=== PATIENT | female | born 1970 | race Caucasian/White ===

== ENCOUNTER 2018-01-06 15:07 | Emergency (ER) | payer MEDICAID, SELFPAY ==
[2018-01-06 15:07] VITALS: BP 122/76; PULSE 105; RESP 18; TEMP 36.8; O2SAT 97; BMI 25.0
--- NOTE | 2018-01-06 15:21 | ED.VISSUMM ---
- ER Visit Summary Date of Service: 01/06/18 Chief Complaint: Fever, cough, myalgias History of Present Illness: The patient is a 47 F who is otherwise healthy presents with 4 days of infectious type symptoms. Patient states her granddaughter was sick with similar symptoms. She states on morning, she began to have a scant cough. She also had diffuse muscle pains and arthralgias. She is also complaining of a sore throat. She states she has had a sore throat intermittently for the past 2 months. She does smoke. She denies any weight loss. She does admit some lack of appetite. She states that she has not had anything come up with the coughing. She has not found anything that improves her symptoms. She denies any history of prior pneumonia. She takes no daily medications. Physical Examination: Vital signs reviewed General: Well-nourished, well-developed Head: Normocephalic, atraumatic Eyes: Pupils equal and reactive, extraocular muscles intact Neck, supple, no lymphadenopathy Heart: Regular rate and rhythm Respiratory: No distress, scant wheeze throughout Abdomen: Soft, nontender, nondistended, no peritoneal signs Back: Nontender Extremities: Nontender, no edema, no cords Skin: Normal color no rash Neuro: Alert and oriented, no focal or lateralizing deficits Test Results: [] Emergency Department Course and Treatment: He was established. Patient was given a breathing treatment and Toradol. She did have marked improvement of symptoms. Her labs are relatively unremarkable. Her influenza test was negative. Patient's chest x-ray does show evidence of an early right lower lobe infiltrates. She is not hypoxic. She has had resolution of her tachypnea. I do feel that she is safe for outpatient therapy. She is given her first dose of azithromycin here. I will keep her on this and prednisone. She was counseled on concerning symptoms. She will be discharged home. Treatment Plan: [] Disposition: Discharge Impression: Community acquired pneumonia This note was generated with [employer] dictation software. It may contain incorrect words, spelling, and punctuation that were not noted in review of the chart prior to signing ED Disposition - Plan for ED Patient: Chief Complaint: General Illness Instructions: ED Pneumonia Adult Prescriptions: Azithromycin [Zithromax] 250 mg PO DAILY #4 tab Prednisone 10 mg PO UD #33 tab Referrals: Care Physician,No Primary [Primary Care Provider] -
[2018-01-06] MEDS: Ketorolac 30 MG/ML Syringe IV (15:32)
[2018-01-06] MEDS: 0.9% Normal Saline 1,000 ML 1000 ML IV (15:32)
[2018-01-06] MEDS: Ipratropium/Albuterol Sulfate 3 ML AMPUL.NEB INHALATION (15:32)
[2018-01-06 15:38] VITALS: PULSE 87; RESP 18
[2018-01-06 15:41] LABS: Absolute Lymphocyte Count 0.67 X10^3/ul (0.83-4.51); Absolute Neutrophil Count 10.1 X10^3/uL (2.0-7.7); Basophil# 0.05 X10^3/uL; Basophil% 0.4 % (0-1); Eosinophil# 0.14 X10^3/uL; Eosinophils% 1.2 % (0-5); Hematocrit 41.1 % (37-47); Hemoglobin 13.6 g/dl (12.0-15.0); Lymphocyte # 0.67 X10^3/ul (4.0); Lymphocyte % 5.6 % (19-41); Mean Corp Hgb Conc 33.1 g/gl (32-36); Mean Corpuscular Hgb 29.8 pg (27.0-32.0); Mean Corpuscular Volume 89.9 fL (81-99); Mean Platelet Vol. 10.4 fl (6.2-12.0); Monocyte# 0.96 X10^3/uL; Neutrophil # 10.14 X10^3/uL (2.7-7.7); Neutrophil % 84.5 % (47-70); POSITIVE COUNT NO; POSITIVE DIFFERENTIAL NO; POSITIVE MORPHOLOGY NO; Platelet Count 319 K/mm3 (150-450); RBC Distribution Width SD 49.3 fl (35.1-43.9); Red Blood Count 4.57 M/mm3 (4.2-5.4)
[2018-01-06 15:45] LABS: Anion Gap 8 (5-15); BUN 15 mg/dL (7-18); BUN/Creat Ratio 18.2 RATIO (10-20); Calcium,Total 9.1 mg/dL (8.5-10.1); Chloride 101 mmol/L (98-107); Creatinine, Serum 0.83 mg/dL (0.55-1.02); EST Glomerular Filtration Rate 78 mL/min (>60); Est Glom Filt Rate - Afr Amer 94 mL/min (>60); Estimated Creatinine Clearance 79.73 ml/min; Glucose 138 mg/dL (74-106); Potassium 3.9 mmol/L (3.5-5.1); Sodium Level 136 mmol/L (136-145)
--- NOTE | 2018-01-06 15:45 | RAD_ITS ---
STUDY: X-RAY CHEST REASON FOR EXAM: Female, 47 years old. COUGH, SHORT OF BREATH, FEVER TECHNIQUE: COMPARISON: None. FINDINGS: On the lateral view posterior to the heart it appears that there is some increased pulmonary parenchymal density. I believe this is to the right of the heart on the PA view but is more difficult to identify on that view. It is suspect for small infiltrate otherwise the remainder lungs are clear. There is no demonstrated pleural abnormality. Normal size heart. Normal mediastinum and katy. Normal visualized pulmonary arteries. Normal visualized aortic arch and descending thoracic aorta. Normal visualized thoracic spine. Normal visualized ribs, clavicles, and shoulders. There is no demonstrated abnormality of the visualized soft tissue structures of the upper abdomen. RAD/Chest PA and Lateral IMPRESSION: Subtle posterior medial right lower lobe infiltrate. Electronically Signed: Zina Morin MD at 17:03 EST Tel , Service support ,
[2018-01-06] MEDS: Azithromycin 250 MG Tablet 500 MG PO (17:29)
[2018-01-06 17:33] VITALS: BP 112/61; PULSE 87; RESP 18; TEMP 36.6; O2SAT 96
== END 2018-01-06 17:36 | disposition home or self-care (01) ==
PROVIDERS: Emergency Provider Emergency Medicine
DX: J18.9 Pneumonia, unspecified organism (principal); F17.200 Nicotine dependence, unspecified, uncomplicated
CPT/HCPCS: 71046; 80048; 85025; 87804; 94640; 96361; 96374; 96375; 99284; J7030; A4216